=== PATIENT | female | born 1950 | race Hispanic/Latino ===

== ENCOUNTER → 2025-02-04 | Outpatient (REF) | payer MEDICARE ==
[~2025-02-04] MED LIST: CALCIUM PO; FISH OIL 1,0001 EAC7 PO; LEVOTHYROXINE50 MCG PO; LIPITOR10 MG PO; NAPROXEN250 MG PO; NEURONTIN100 MG PO; OMEPRAZOLE40 MG PO; ULTRAM 50MG50 MG PO
== END ==
LOC: RAD 10:50
PROVIDERS: ATTEND Internal Medicine
DX: Z01.818 Encounter for other preprocedural examination (principal)
CPT/HCPCS: 71046

== ENCOUNTER 2025-03-24 16:28 | Inpatient (IN) | payer MEDICARE ==
[~2025-03-24] VITALS: Ht 152.4 cm; Wt 112.0 kg
[2025-03-24 16:30] VITALS: TEMP 98.3
[2025-03-24 16:59] LABS: BASOPHILS % 0.3 % (0.0-1.0); EOSINOPHILS # (AUTO) 0.1 (0.0-0.4); EOSINOPHILS % 0.9 % (0.0-6.0); HEMATOCRIT 35.8 % (34.2-44.1); HEMOGLOBIN 11.5 g/dL (12.0-16.0); LYMPHOCYTES # (AUTO) 2.2 (1.0-3.2); LYMPHOCYTES % 14.5 % (18.0-39.1); MEAN CORPUSCULAR HEMOGLOBIN 29.5 pg (28-32); MEAN CORPUSCULAR HGB CONC 32.1 g/dL (31-35); MEAN CORPUSCULAR VOLUME 91.8 fL (81-99); MONOCYTES # (AUTO) 0.6 (0.2-0.8); MONOCYTES % 3.7 % (4.4-11.3); NEUTROPHILS # (AUTO) 11.7 (2.1-6.9); PLATELET COUNT 268 x10e3/uL (140-360); RED CELL DISTRIBUTION WIDTH 14.4 % (11.7-14.4); WHITE BLOOD COUNT 14.79 x10e3/uL (4.8-10.8)
[2025-03-24 17:12] LABS: INR 0.94; PROTHROMBIN TIME 13.4 seconds (11.9-14.5)
[2025-03-24 17:13] LABS: PARTIAL THROMBOPLASTIN TIME 36.5 seconds (23.8-35.5)
[2025-03-24 17:16] LABS: BILIRUBIN,URINE SMALL (NEGATIVE); CLARITY,URINE SL CLOUDY (CLEAR); COLOR,URINE AMBER (YELLOW); GLUCOSE, URINE NEGATIVE (NEGATIVE); KETONES,URINE 1+ (NEGATIVE); LEUKOCYTE ESTERASE ,URINE NEGATIVE (NEGATIVE); NITRITE,URINE NEGATIVE (NEGATIVE); PH,URINE 6 (5 - 7); PROTEIN,URINE DIPSTICK 1+ (NEGATIVE); URINE UROBILINOGEN 1 mg/dL (0.2 - 1)
[2025-03-24 17:19] LABS: ALBUMIN 2.9 g/dL (3.5-5.0); ALBUMIN/GLOBULIN RATIO 0.7 (0.8-2.0); ANION GAP 17.3 mmol/L (8-16); BILIRUBIN,TOTAL 0.8 mg/dL (0.2-1.2); CALCIUM 8.8 mg/dL (8.4-10.2); CREATININE, SERUM 0.73 mg/dL (0.57-1.11)
[2025-03-24 17:21] LABS: POTASSIUM 3.3 mmol/L (3.5-5.1)
[2025-03-24 17:26] LABS: AMORPHOUS SEDIMENT,URINE FEW; BACTERIA,URINE FEW /HPF; MUCUS,URINE MODERATE
[2025-03-24] MEDS: SODIUM CHLORIDE 0.9% 1000ML 1,000 ML IV ONE (17:30)
[2025-03-24] MEDS ORDERED: IOPAMIDOL 370 MG/ML 100 ML INFUS..BTL INJ ONE (18:43)
[2025-03-24 19:50] LABS: STREPTOCOCCUS GRP A ANTIGEN NEGATIVE (NEGATIVE)
[2025-03-24 19:53] LABS: INFLUENZA A AG NEGATIVE (NEGATIVE)
[2025-03-24 19:54] LABS: CORONAVIRUS COVID-19 AG NEGATIVE (NEGATIVE); INFLUENZA B AG NEGATIVE (NEGATIVE)
[2025-03-24 20:53] LABS: ABG HCO3 24 mmol/L (22-26); ABG PCO2 43 mmHg (35-45); ABG PH 7.36 (7.35-7.45); ABG PO2 68 mmHg (80-105); ABG TCO2 26
[2025-03-24] MEDS ORDERED: Morphine 4mg INJECTION 4 MG/ML INJ IV PRN (21:30)
[2025-03-24] MEDS ORDERED: ONDANSETRON HCL INJ 2MG/ML 2ML 2 MG/ML VIAL IV PRN (21:30)
[2025-03-24] MEDS ORDERED: SODIUM CHLORIDE FLUSH 10 ML SYR INJ PRN (21:30)
[2025-03-24 23:52] VITALS: PULSE 78; RESP 22; O2SAT 100
[2025-03-25] VITALS (36 sets, daily range): BP systolic 117–150; BP diastolic 49–97; PULSE 70–102; RESP 16–27; TEMP 97.5–99; O2SAT 87–100
[2025-03-25] MEDS ORDERED: BREZTRI AEROS10.7 GM INH (04:07)
[2025-03-25] MEDS ORDERED: FUROSEMIDE40 MG PO (04:07)
[2025-03-25] MEDS ORDERED: BENICAR20 MG PO (04:07)
[2025-03-25] MEDS ORDERED: KLONOPIN2 MG PO (04:08)
[2025-03-25 07:30] LABS: BASOPHILS # (AUTO) 0.1 (0.0-0.1); BASOPHILS % 0.3 % (0.0-1.0); HEMATOCRIT 36.6 % (34.2-44.1); HEMOGLOBIN 11.5 g/dL (12.0-16.0); LYMPHOCYTES # (AUTO) 0.9 (1.0-3.2); LYMPHOCYTES % 6.1 % (18.0-39.1); MEAN CORPUSCULAR HEMOGLOBIN 29.7 pg (28-32); MEAN CORPUSCULAR HGB CONC 31.4 g/dL (31-35); MEAN CORPUSCULAR VOLUME 94.6 fL (81-99); MONOCYTES # (AUTO) 0.1 (0.2-0.8); MONOCYTES % 0.9 % (4.4-11.3); NEUTROPHILS # (AUTO) 13.2 (2.1-6.9); NEUTROPHILS % 90.1 % (38.7-80.0); PLATELET COUNT 267 x10e3/uL (140-360); RED BLOOD COUNT 3.87 x10e6/uL (3.6-5.1); RED CELL DISTRIBUTION WIDTH 14.2 % (11.7-14.4); WHITE BLOOD COUNT 14.65 x10e3/uL (4.8-10.8)
[2025-03-25 08:11] LABS: ALBUMIN 2.7 g/dL (3.5-5.0); ALBUMIN/GLOBULIN RATIO 0.6 (0.8-2.0); BILIRUBIN,TOTAL 0.3 mg/dL (0.2-1.2); CALCIUM 8.9 mg/dL (8.4-10.2); CREATININE, SERUM 0.76 mg/dL (0.57-1.11)
[2025-03-25 08:37] LABS: TROPONIN I 0.017 ng/mL (0-0.300)
[2025-03-25] MEDS: PANTOPRAZOLE SOD 40 MG TABEC PO SCH (09:37)
[2025-03-25] MEDS: LEVOTHYROXINE SODIUM 25 MCG TABLET PO SCH (09:37)
[2025-03-25] MEDS ORDERED: ACETAMINOPHEN 325 MG TAB PO PRN (11:30)
[2025-03-25] MEDS ORDERED: NICOTINE 21 MG/EA PATCH TOP PRN (11:30)
[2025-03-25] MEDS ORDERED: ALBUTEROL/IPRATROPIUM 3 ML NEB NEB PRN (11:30)
[2025-03-25] MEDS ORDERED: METOPROLOL TARTRATE INJ 1 MG/ML VIAL IV PRN (11:30)
[2025-03-25 16:45] LABS: TROPONIN I 0.017 ng/mL (0-0.300)
[2025-03-25] MEDS: ATORVASTATIN 10 MG TAB PO SCH (20:39)
[2025-03-25] MEDS: MELATONIN 3 MG TAB PO PRN (22:36)
[2025-03-26] VITALS (13 sets, daily range): BP systolic 128–156; BP diastolic 66–81; PULSE 74–107; RESP 15–26; TEMP 97.7–98.9; O2SAT 96–100
[2025-03-26 07:16] LABS: BASOPHILS # (AUTO) 0.1 (0.0-0.1); BASOPHILS % 0.5 % (0.0-1.0); EOSINOPHILS % 0.1 % (0.0-6.0); HEMATOCRIT 35.8 % (34.2-44.1); HEMOGLOBIN 10.9 g/dL (12.0-16.0); LYMPHOCYTES # (AUTO) 1.8 (1.0-3.2); LYMPHOCYTES % 10.2 % (18.0-39.1); MEAN CORPUSCULAR HEMOGLOBIN 29.8 pg (28-32); MEAN CORPUSCULAR HGB CONC 30.4 g/dL (31-35); MEAN CORPUSCULAR VOLUME 97.8 fL (81-99); MONOCYTES # (AUTO) 0.8 (0.2-0.8); MONOCYTES % 4.7 % (4.4-11.3); NEUTROPHILS # (AUTO) 14.6 (2.1-6.9); NEUTROPHILS % 83.2 % (38.7-80.0); PLATELET COUNT 261 x10e3/uL (140-360); RED BLOOD COUNT 3.66 x10e6/uL (3.6-5.1); RED CELL DISTRIBUTION WIDTH 14.5 % (11.7-14.4); WHITE BLOOD COUNT 17.58 x10e3/uL (4.8-10.8)
[2025-03-26 08:03] LABS: ALBUMIN 2.6 g/dL (3.5-5.0); ALBUMIN/GLOBULIN RATIO 0.7 (0.8-2.0); ANION GAP 14.5 mmol/L (8-16); BILIRUBIN,TOTAL 0.2 mg/dL (0.2-1.2); CALCIUM 8.7 mg/dL (8.4-10.2); CREATININE, SERUM 0.75 mg/dL (0.57-1.11); POTASSIUM 3.5 mmol/L (3.5-5.1); TOTAL PROTEIN 6.3 g/dL (6.5-8.1)
[2025-03-26 13:44] LABS: TROPONIN I 0.02 ng/mL (0-0.300)
[2025-03-26] MEDS: DOCUSATE SODIUM 100 MG CAP PO PRN (22:11)
[2025-03-27] VITALS (11 sets, daily range): BP systolic 124–156; BP diastolic 57–89; PULSE 95–105; RESP 18–20; TEMP 97.9–98.7; O2SAT 99–100
[2025-03-27 07:02] LABS: BASOPHILS # (AUTO) 0.1 (0.0-0.1); BASOPHILS % 0.4 % (0.0-1.0); EOSINOPHILS # (AUTO) 0.1 (0.0-0.4); EOSINOPHILS % 1.2 % (0.0-6.0); HEMATOCRIT 33.8 % (34.2-44.1); HEMOGLOBIN 10.5 g/dL (12.0-16.0); LYMPHOCYTES # (AUTO) 2.5 (1.0-3.2); LYMPHOCYTES % 21.5 % (18.0-39.1); MEAN CORPUSCULAR HEMOGLOBIN 29.8 pg (28-32); MEAN CORPUSCULAR HGB CONC 31.1 g/dL (31-35); MONOCYTES # (AUTO) 0.6 (0.2-0.8); MONOCYTES % 5.6 % (4.4-11.3); NEUTROPHILS % 70.1 % (38.7-80.0); PLATELET COUNT 299 x10e3/uL (140-360); RED BLOOD COUNT 3.52 x10e6/uL (3.6-5.1); RED CELL DISTRIBUTION WIDTH 14.8 % (11.7-14.4); WHITE BLOOD COUNT 11.46 x10e3/uL (4.8-10.8)
[2025-03-27 07:48] LABS: ALBUMIN 2.6 g/dL (3.5-5.0); ALBUMIN/GLOBULIN RATIO 0.8 (0.8-2.0); ANION GAP 15.3 mmol/L (8-16); BILIRUBIN,TOTAL 0.2 mg/dL (0.2-1.2); CALCIUM 8.5 mg/dL (8.4-10.2); CREATININE, SERUM 0.74 mg/dL (0.57-1.11)
[2025-03-27 07:50] LABS: POTASSIUM 3.3 mmol/L (3.5-5.1)
[2025-03-27] MEDS: TRAMADOL HCL 50 MG TAB PO PRN (12:06)
[2025-03-27] MEDS: POTASSIUM CHLORIDE 20 MEQ TAB CR PO ONE (13:41)
[2025-03-27] MEDS: ENOXAPARIN SOD INJ 40 MG/0.4 ML SYR SC SCH (17:10)
[2025-03-27] MEDS: GABAPENTIN 100 MG CAP PO SCH (17:10)
[2025-03-28] VITALS (9 sets, daily range): BP systolic 123–158; BP diastolic 58–74; PULSE 90–98; RESP 17–21; TEMP 97.8–98.5; O2SAT 97–100
[2025-03-29] VITALS (9 sets, daily range): BP systolic 128–137; BP diastolic 58–71; PULSE 90–109; RESP 16–22; TEMP 97.9–98.5; O2SAT 96–100
[2025-03-29 06:57] LABS: BASOPHILS % 0.3 % (0.0-1.0); EOSINOPHILS # (AUTO) 0.2 (0.0-0.4); EOSINOPHILS % 1.8 % (0.0-6.0); HEMATOCRIT 33.5 % (34.2-44.1); HEMOGLOBIN 10.2 g/dL (12.0-16.0); LYMPHOCYTES # (AUTO) 2.2 (1.0-3.2); LYMPHOCYTES % 18.7 % (18.0-39.1); MEAN CORPUSCULAR HEMOGLOBIN 29.6 pg (28-32); MEAN CORPUSCULAR HGB CONC 30.4 g/dL (31-35); MEAN CORPUSCULAR VOLUME 97.1 fL (81-99); MONOCYTES # (AUTO) 0.5 (0.2-0.8); MONOCYTES % 4.1 % (4.4-11.3); NEUTROPHILS # (AUTO) 8.6 (2.1-6.9); NEUTROPHILS % 72.9 % (38.7-80.0); PLATELET COUNT 292 x10e3/uL (140-360); RED BLOOD COUNT 3.45 x10e6/uL (3.6-5.1); RED CELL DISTRIBUTION WIDTH 14.6 % (11.7-14.4); WHITE BLOOD COUNT 11.75 x10e3/uL (4.8-10.8)
[2025-03-29 07:16] LABS: ANION GAP 14.3 mmol/L (8-16); CALCIUM 8.7 mg/dL (8.4-10.2); CREATININE, SERUM 0.7 mg/dL (0.57-1.11)
[2025-03-29 07:24] LABS: POTASSIUM 3.3 mmol/L (3.5-5.1)
[2025-03-29] MEDS: POTASSIUM CHLORIDE 10MEQ EA PO ONE (09:38)
[2025-03-30] VITALS (9 sets, daily range): BP systolic 135–150; BP diastolic 52–97; PULSE 81–95; RESP 18–24; TEMP 97.7–99.1; O2SAT 95–100
[2025-03-31] VITALS: BP 142/82; PULSE 94; RESP 18; TEMP 98.6; O2SAT 100
[2025-03-31 04:00] VITALS: BP 129/59; PULSE 92; RESP 18; TEMP 98; O2SAT 98
[2025-03-31 07:53] VITALS: PULSE 88; RESP 22; O2SAT 98
[2025-03-31 08:37] VITALS: BP 136/62; PULSE 94; RESP 20; TEMP 98.9; O2SAT 95
[2025-03-31 09:00] VITALS: BP 136/62; PULSE 94; RESP 20; TEMP 98.9; O2SAT 95
[2025-03-31 11:28] VITALS: BP 145/59; PULSE 86; RESP 20; TEMP 98.4; O2SAT 99
[2025-04-01 07:33] LABS: ABG HCO3 24 mmol/L (22-26); ABG PCO2 43 mmHg (35-45); ABG PH 7.36 (7.35-7.45); ABG PO2 68 mmHg (80-105); ABG TCO2 26
== END 2025-03-31 12:52 | disposition home health service (06) | DRG 193 ==
LOC: ER 16:33 → ERHOLD 21:32 → ICU 03-25 02:08 → MED/SURG3 03-26 10:19
PROVIDERS: ADMIT Internal Medicine; ATTEND Internal Medicine
PROC: 4A033R1 Measurement of Arterial Saturation, Peripheral, Percutaneous Approach (ICD-10-PCS; principal; 2025-03-24)
PROC: 4A033R1 Measurement of Arterial Saturation, Peripheral, Percutaneous Approach (ICD-10-PCS; 2025-03-24)
PROC: 5A09357 Assistance with Respiratory Ventilation, Less than 24 Consecutive Hours, Continuous Positive Airway Pressure (ICD-10-PCS; 2025-03-24)
PROC: 5A09357 Assistance with Respiratory Ventilation, Less than 24 Consecutive Hours, Continuous Positive Airway Pressure (ICD-10-PCS; 2025-03-25)
DX: J18.9 Pneumonia, unspecified organism (principal); I50.33 Acute on chronic diastolic (congestive) heart failure; J96.01 Acute respiratory failure with hypoxia; Z68.42 Body mass index [BMI] 45.0-49.9, adult; E87.1 Hypo-osmolality and hyponatremia; I11.0 Hypertensive heart disease with heart failure; E66.01 Morbid (severe) obesity due to excess calories; D64.9 Anemia, unspecified; E78.5 Hyperlipidemia, unspecified; E03.9 Hypothyroidism, unspecified; R53.1 Weakness; G47.33 Obstructive sleep apnea (adult) (pediatric); F17.210 Nicotine dependence, cigarettes, uncomplicated; M54.9 Dorsalgia, unspecified; G89.29 Other chronic pain; I27.29 Other secondary pulmonary hypertension; Z99.81 Dependence on supplemental oxygen; R53.81 Other malaise; Z11.52 Encounter for screening for COVID-19; Z71.81 Spiritual or religious counseling; Z79.899 Other long term (current) drug therapy
CPT/HCPCS: 36415; 36600; 71045; 71260; 80048; 80053; 81001; 82550; 82805; 82948; 83518; 83605; 83880; 84484; 85025; 85610; 85730; 87040; 87070; 87086; 93005; 93306; 94660; 94799; 99252; 99284; J0696; J1650; J2470; J7030; J7050; Q9967